=== PATIENT | male | born 1955 | race Caucasian/White ===

== ENCOUNTER 2019-04-09 07:50 | Outpatient (CLI) | payer MEDICARE, SELFPAY ==
--- NOTE | 2019-04-09 08:00 | USCV_ITS ---
Bony Burrows Age: 64 Gender: M : 1955 Exam Date: 04/09/2019 08:10 Ordering Phys: Michael Zavala MD Technologist: Luis Chaudhary Exam Location: [facility] [place] Indication: CAD HX OF CABG BP: 150 / 85 HR: 70 Rhythm: Sinus Technical Quality: Adequate MEASUREMENTS (Male / Female) Normal Values 2D ECHO LV Diastolic Diameter PLAX 4.2 cm 4.2 - 5.9 / 3.9 - 5.3 cm LV Systolic Diameter PLAX 2.6 cm IVS Diastolic Thickness 0.9 cm 0.6 - 1.0 / 0.6 - 0.9 cm IVS Systolic Thickness 1.3 cm LVPW Diastolic Thickness 1.1 cm 0.6 - 1.0 / 0.6 - 0.9 cm LVPW Systolic Thickness 1.2 cm LVOT Diameter 2.0 cm LV Ejection Fraction 2D Teich 68.6 % LV Ejection Fraction MOD 2C 51.0 % LV Ejection Fraction 2C AL 51.1 % LA Diameter 3.2 cm LA Width 3.9 cm LA Height 3.7 cm RA Width 3.3 cm RA Height 3.6 cm Aorta at Sinotubular Diameter 3.0 cm M-MODE LV Diastolic Diameter MM 5.5 cm 4.2 - 5.9 / 3.9 - 5.3 cm LV Systolic Diameter MM 3.6 cm LV Ejection Fraction MM Teich 64.5 % IVS Diastolic Thickness MM 0.9 cm 0.6 - 1.0 / 0.6 - 0.9 cm IVS Systolic Thickness MM 1.4 cm LVPW Diastolic Thickness MM 1.3 cm 0.6 - 1.0 / 0.6 - 0.9 cm LVPW Systolic Thickness MM 1.8 cm RV Diastolic Diameter MM 1.1 cm Aortic Annulus Diameter 3.9 cm LA Ao Ratio MM 0.8 MV E Point Septal Separation 2.0 cm DOPPLER AV Peak Velocity 152.0 cm/s LVOT Peak Velocity 93.0 cm/s AV Area Cont Eq vti 2.0 cm squared AV Area Cont Eq pk 2.0 cm squared MV Area PHT 4.3 cm squared Mitral E to A Ratio 1.4 MV E' Velocity 7.0 cm/s Mitral E to MV E' Ratio 10.3 Mitral E to LV E' Lateral Ratio 10.8 Mitral E to LV E' Septal Ratio 9.9 TR Peak Velocity 212.0 cm/s TR Peak Gradient 17.9 mmHg TV Peak E Velocity 83.0 cm/s Right Atrial Pressure 3.0 mmHg Pulmonary Artery Systolic Pressu 21.0 mmHg FINDINGS Left Ventricle Normal left ventricular cavity size. Normal left ventricular systolic function. Left ventricular ejection fraction is estimated at 55 %. No regional wall motion abnormalities. Abnormal (paradoxical) septal motion consistent with postoperative status. Normal diastolic function. Right Ventricle Probably normal right ventricular size and systolic function. Right ventricular systolic pressure 21 mmHg. Right Atrium Normal right atrial size. Left Atrium Normal left atrial size. Mitral Valve Mild mitral annular calcification. Mildly thickened mitral valve. No mitral valve stenosis. Trace mitral valve regurgitation. Aortic Valve Mildly thickened and calcified trileaflet aortic valve. Aortic valve sclerosis with no aortic valve stenosis. No aortic valve regurgitation. Tricuspid Valve Structurally normal tricuspid valve. No tricuspid valve stenosis. Trace tricuspid valve regurgitation. Pulmonic Valve Pulmonic valve not well visualized. No pulmonary valve stenosis. Trace pulmonary valve regurgitation. Pericardium No pericardial effusion. Aorta Normal-sized aortic root. CONCLUSIONS 1. Normal left ventricular cavity size and left ventricular systolic function. Left ventricular ejection fraction is estimated at 55 %. No regional wall motion abnormalities. Normal diastolic function. 2. Probably normal right ventricular size and systolic function. 3. Aortic valve sclerosis with no aortic valve stenosis. 4. Pulmonary artery pressure estimated at 21 mmHg. 5. When compared to previous echocardiogram dated 04/10/2018, left ventricular systolic function seems to have improved. Gavi Demarco MD (Electronically Signed) Final Date: 11 April 2019 17:43 S
== END 2019-04-09 07:51 | disposition home or self-care (01) ==
LOC: US 07:51
PROVIDERS: Family Provider Family Medicine; PCP Family Medicine; Visit Provider Family Medicine
DX: I25.10 Atherosclerotic heart disease of native coronary artery without angina pectoris (principal); I35.8 Other nonrheumatic aortic valve disorders
CPT/HCPCS: 93306

== ENCOUNTER 2020-10-14 08:09 | Outpatient (CLI) | payer MEDICARE, SELFPAY ==
[2020-10-14 08:30] VITALS: BMI 25.7
--- NOTE | 2020-10-14 08:37 | ECG_ITS ---
[facility] Test Date: 2020-10-14 Pat Name: Bony Burrows Department: Room: Gender: Male [employer]visor [employer]: : 1955 Requested By: Michael Shah Order Number: [id number] Nikki MD: Stephan Bear M.D. Interpretive Statements NAME OF STUDY: EXERCISE SESTAMIBI STRESS TEST INDICATION: Chest Pain, PROCEDURE: The baseline electrocardiogram showed normal sinus rhythm with right bundle branch block pattern. Left anterior fascicular block. At the baseline, the patient's blood pressure was 134/82 mm Hg with a heart rate of 83. The patient exercised for 5 minutes and 58 seconds on a standard Syd protocol. Patient attained a maximum heart rate of 151 beats per minute( 98 % of the maximum predicted heart rate) with a blood pressure at the peak exercise of 199/86 mm Hg. The EKG at the peak exercise revealed no significant changes occasional PVCs were noted of the peak exercise. Patient did not have any chest pain or any significant arrhythmis with the exercise Sestamibi was injected 1 minute prior to the peak exercise During the recovery phase, there were no new changes. Blood pressure at the end of the recovery phase was 134/90 mm Hg with a heart rate of 99 per minute. CONCLUSION: 1. No significant EKG changes with the [treadmill exercise. Hypertensive response to exercise 2. No exercise-induced chest pain or cardiac arrhythmia. Occasional PVCs are noted at the peak exercise 3. Impaired exercise tolerance, attained a maximum of 7.0 METs 4. Sestamibi/Sestamibi perfusion results pending; see separate report. Electronically Signed On 10-16-2020 0:38:18 CDT by Stephan Bear M.D. [id number]
--- NOTE | 2020-10-14 08:38 | NMCV_ITS ---
NM owen perf SPECT r/s* [id number] Bony Burrows Age: 65 Gender: M : 1955 Exam Date: 10/14/2020 09:19 Ordering Phys: Michael Zavala MD Technologist: LEANDER Cristobal Exam Location: [facility] Indications: CHEST PAIN STRESS TEST [facility] IMAGE PROTOCOL Rest/Stress 1 Exercise Day Radiopharmaceutical Dose (mCi) Administration Site Administered by Rest: Tc-99m 10.8 IV LEANDER Wilkes Sestamibi Stress:Tc-99m 32.5 IV LEANDER Wilkes Sestamibi Rest: 14-Oct-2020 60 Discovery 630 Stress: 14-Oct-2020 15 Discovery 630 Radiopharmaceutical was injected at 94 % maximum heart rate. Images obtained in supine and prone position. SPECT RESULTS Technical Quality: Excellent Raw Data Analysis: Normal Image Corrections: No attenuation or motion correction applied Summed Stress Score: 0 Summed Rest Score: 0 Summed Difference Score: 0 PERFUSION FINDINGS Small area of slightly decreased size uptake in the inferior wall and apical region with no significant reversibility FUNCTIONAL RESULTS (calculated via Gated SPECT) Stress Image LV EF (%): 67 Stress EDV (mL):66 TID: 0.88 Stress ESV (mL):22 FUNCTIONAL FINDINGS: Segmental wall motion analysis revealing no gross wall motion normalities. IMPRESSIONS 1. Myocardial perfusion imaging revealing small area of persistent decreased tracer uptake in the inferior and apical regions, suggestive of myocardial scarring versus attenuation artifact. 2. Normal LV ejection fraction of 67%. 3. LV wall motion analysis revealing no gross wall motion normalities. 4. Normal LV volume. No significant coronary ischemia, based on the above findings Dr Stephan Bear MD FAC (Electronically Signed) Final Date: 14 October 2020 16:51 S
[2020-10-14 10:37] VITALS: BP 134/90; PULSE 96
== END 2020-10-14 08:10 | disposition home or self-care (01) ==
LOC: RAD 08:20 → CDL 08:25
PROVIDERS: PCP Family Medicine; Visit Provider Family Medicine
DX: R07.9 Chest pain, unspecified (principal)
CPT/HCPCS: 78452; 93017; A9500

== ENCOUNTER 2021-01-08 11:47 | Outpatient (CLI) | payer MEDICARE, SELFPAY ==
--- NOTE | 2021-01-08 11:55 | XR_ITS ---
WS: [id number] Exam: XR hip LT 2-3V wo/w pel* [id number] Date/Time of Exam: 01/08/2021 12:31 PM Reason For Exam: LEFT HIP PAIN No fracture or dislocation. Ceip-ze-duallxdv DJD of the joint compartment. Soft tissue calcification along the greater trochanter. XR/XR hip LT 2-3V wo/w pel* [id number] IMPRESSION: 1. Degenerative changes. No fracture. 2. Soft tissue calcification along the greater trochanter that might indicate c alcific bursitis.
--- NOTE | 2021-01-08 11:55 | XR_ITS ---
WS: [id number] Exam: XR sacroiliac jts m 3V [id number] Date/Time of Exam: 01/08/2021 12:31 PM Reason For Exam: LEFT HIP PAIN No fracture or dislocation noted. The SI joints are open. No evidence of bone destruction. Minimal de generative change of the SI joints. XR/XR sacroiliac jts m 3V [id number] IMPRESSION: 1. Mild SI joint DJD. 2. No sign of fracture or bone destruction.
== END 2021-01-08 11:48 | disposition home or self-care (01) ==
PROVIDERS: PCP Family Medicine; Visit Provider Family Medicine
DX: M25.552 Pain in left hip (principal); M46.1 Sacroiliitis, not elsewhere classified
CPT/HCPCS: 72202; 73502

== ENCOUNTER → 2021-05-11 09:44 | Outpatient (BNVA) | payer MEDICARE, SELFPAY | PROVIDERS: PCP Family Medicine; Referring Provider Family Medicine; Visit Provider Specialist | DX: R20.0 Anesthesia of skin (principal); R20.2 Paresthesia of skin; F17.200 Nicotine dependence, unspecified, uncomplicated | CPT/HCPCS: 95908 ==

== ENCOUNTER → 2021-06-24 16:53 | Outpatient (BNVA) | payer MEDICARE, SELFPAY | PROVIDERS: PCP Family Medicine; Visit Provider Family Medicine | DX: E78.5 Hyperlipidemia, unspecified (principal); I10 Essential (primary) hypertension; R53.83 Other fatigue; Z12.5 Encounter for screening for malignant neoplasm of prostate | CPT/HCPCS: 80053; 80061; 82306; 82607; 84403; 84443; 85025; G0103 ==

== ENCOUNTER → 2021-10-05 18:11 | Outpatient (BNVA) | payer MEDICARE, SELFPAY | PROVIDERS: PCP Family Medicine; Visit Provider Family Medicine | DX: E55.9 Vitamin D deficiency, unspecified (principal); E78.5 Hyperlipidemia, unspecified; F32.A Depression, unspecified; I10 Essential (primary) hypertension | CPT/HCPCS: 80053; 80061; 82306; 84443; 85025 ==

== ENCOUNTER → 2022-01-07 12:06 | Outpatient (BNVA) | payer MEDICARE, SELFPAY | PROVIDERS: PCP Family Medicine; Visit Provider Family Medicine | DX: E55.9 Vitamin D deficiency, unspecified (principal); E78.5 Hyperlipidemia, unspecified; I10 Essential (primary) hypertension; L03.90 Cellulitis, unspecified; R20.0 Anesthesia of skin; R20.2 Paresthesia of skin | CPT/HCPCS: 80053; 80061; 82306; 84443; 85025 ==

== ENCOUNTER 2022-04-27 11:02 | Outpatient (CLI) | payer MEDICARE, SELFPAY ==
--- NOTE | 2022-04-27 11:21 | XR_ITS ---
WS: [id number] Left hip, AP and frog-leg views, 04/27/2022 Clinical Data: M54.50 - Low back pain, unspecified Comparison: None. Findings: No fractures or dislocations are seen. The hip joint is intact. The left hip shows no erosion, sclero sis, narrowing, cyst formation or fragmentation of the left femoral head. The soft tissues are not re markable. The adjacent pelvis is normal. There are calcifications adjacent to the greater trochanter which could indicate calcific bursitis an d/or tendinitis. There are vascular calcifications. XR/XR hip LT 2-3V wo/w pel* [id number] Impression: Negative left hip. Tonnis classification: grade 0: normal radiographs
--- NOTE | 2022-04-27 11:21 | XR_ITS ---
WS: [id number] Lumbar spine, 8 views including flexion, extension and neutral lateral, both obliques, L5-S1 spot, AP and standard lateral, 04/27/2022 Clinical Data: M54.50 - Low back pain, unspecified Comparison: None. Findings: No compression fractures or subluxation is seen. There is degenerative disc narrowing at L1-L2, L2-L3 and L3-L4. There are anterior osteophytes of the lower thoracic and all the lumbar vertebral bodies. There is no limitation of motion or subluxation on flexion or extension. The oblique films show no s pondylolysis. The transverse processes and SI joints are normal. There are clips in the right upper quadrant from a cholecystectomy. There is calcification in the wal l of the abdominal aorta but no aneurysm. XR/XR lumbar spine 6V w f/e [id number] Impression: 1. Multilevel degenerative disc narrowing and osteoarthritis. 2. Negative for spondylolysis on the oblique films. 3. Negative for limitation of motion or subluxation on flexion or extension.
== END 2022-04-27 11:03 | disposition home or self-care (01) ==
PROVIDERS: PCP Family Medicine; Visit Provider Family Medicine
DX: M54.50 Low back pain, unspecified (principal)
CPT/HCPCS: 72114; 73502

== ENCOUNTER 2022-05-11 06:00 | Outpatient (RCR) | payer MEDICARE, SELFPAY | END 2022-05-20 23:59 | disposition home or self-care (01) | LOC: TPT 06:00 | PROVIDERS: PCP Family Medicine; Visit Provider Family Medicine | DX: M54.50 Low back pain, unspecified (principal); M25.552 Pain in left hip | CPT/HCPCS: 97161 ==

== ENCOUNTER → 2022-09-08 11:13 | Outpatient (BNVA) | payer MEDICARE, SELFPAY | PROVIDERS: PCP Family Medicine; Visit Provider Nurse Practitioner Family | DX: Z12.5 Encounter for screening for malignant neoplasm of prostate (principal); I10 Essential (primary) hypertension; E55.9 Vitamin D deficiency, unspecified; J32.9 Chronic sinusitis, unspecified; F17.210 Nicotine dependence, cigarettes, uncomplicated; M25.552 Pain in left hip; R53.83 Other fatigue; E78.5 Hyperlipidemia, unspecified; Z12.11 Encounter for screening for malignant neoplasm of colon | CPT/HCPCS: 80053; 80061; 82306; 82607; 83735; 84443; 85025; G0103 ==

== ENCOUNTER 2022-09-20 13:20 | Outpatient (CLI) | payer MEDICARE, SELFPAY ==
--- NOTE | 2022-09-20 13:30 | CT_ITS ---
WS: [id number] LDCT LUNG CANCER SCREENING HISTORY: F17.210 - Nicotine dependence, cigarettes, uncomplicated TECHNIQUE: Axial imaging performed from the apices to 1 cm below the costophrenic angles. Coronal and sagittal reformats are submitted with axial MIP series. All CT scans at [facility] use at least one of these dose optimization techniques: automated exposure control; mA and/or kV adjustment per patient size (includes targeted exams where dose is matched to clinical indication); or iterativ e reconstruction. DLP: 55.91 mGy.cm DIvol: Mean CTDIvol: 1.20 (mGy) COMPARISON: None available. Diagnostic quality: Satisfactory Lungs: Mild elevation of the LEFT hemidiaphragm. No pulmonary mass or nodules. No endobronchial lesio ns. There is very mild thickening along the pleura. Linear-like atelectasis LEFT lower lobe. Heart: Normal size heart with no pericardial effusion.. Extensive coronary artery calcifications. Iris or CABG. Other findings: Atherosclerosis aorta. No adenopathy. Prior cholecystectomy. Increase in thoracic kyp hosis. CT/CT lung screening [id number] IMPRESSION: LUNG-RADS: 1-Negative FOLLOW UP: 12 Month: Continue annual screening with LDCT OTHER FINDINGS (S MODIFIER): None.
== END 2022-09-20 13:21 | disposition home or self-care (01) ==
LOC: RAD 13:24
PROVIDERS: PCP Family Medicine; Visit Provider Nurse Practitioner Family
DX: Z12.2 Encounter for screening for malignant neoplasm of respiratory organs (principal); F17.210 Nicotine dependence, cigarettes, uncomplicated
CPT/HCPCS: 71271; 80053; 80061; 82306; 82607; 83735; 84443; 85025; G0103

== ENCOUNTER → 2023-04-25 09:37 | Outpatient (BNVA) | payer MEDICARE, SELFPAY | PROVIDERS: PCP Family Medicine; Visit Provider Family Medicine | DX: I10 Essential (primary) hypertension (principal); E78.5 Hyperlipidemia, unspecified; E55.9 Vitamin D deficiency, unspecified; M19.90 Unspecified osteoarthritis, unspecified site; R20.0 Anesthesia of skin; R20.2 Paresthesia of skin; E78.2 Mixed hyperlipidemia; R53.83 Other fatigue | CPT/HCPCS: 80053; 80061; 82306; 84443; 85025 ==

== ENCOUNTER → 2023-11-13 14:59 | Outpatient (BNVA) | payer MEDICARE, SELFPAY | PROVIDERS: PCP Family Medicine; Visit Provider Nurse Practitioner Family | DX: Z12.5 Encounter for screening for malignant neoplasm of prostate (principal); M54.2 Cervicalgia; E55.9 Vitamin D deficiency, unspecified; I10 Essential (primary) hypertension; Z96.698 Presence of other orthopedic joint implants | CPT/HCPCS: 72040; 80053; 80061; 82306; 82607; 84443; 85025; G0103 ==

== ENCOUNTER → 2024-05-27 12:23 | Outpatient (BNVA) | payer MEDICARE, SELFPAY | PROVIDERS: PCP Family Medicine | DX: J02.9 Acute pharyngitis, unspecified (principal) | CPT/HCPCS: 87880 ==